=== PATIENT | female | born 1965 | race Caucasian/White ===

== ENCOUNTER 2017-01-14 11:18 | Inpatient (IN) | payer MEDICAID ==
[~2017-01-14] VITALS: Ht 160 cm; Wt 73.0 kg
[2017-01-14] MEDS ORDERED: NITROGLYCERIN OINT 1GM/INCH UDPKT TD STA (11:46)
[2017-01-14 12:49] LABS: BASOPHILS % 0.5 % (0.0-2.0); EOSINOPHILS % 0.4 % (0.0-5.0); HEMATOCRIT. 44.3 % (36.0-48.0); HEMOGLOBIN. 15.8 g/dL (12.0-16.0); LYMPHOCYTES % 18.8 % (20.0-50.0); MEAN CORPUSCULAR HEMOGLOBIN 30.9 pg (28.0-32.0); MEAN CORPUSCULAR VOLUME 86.8 fL (81.0-99.0); MEAN PLATELET VOLUME 8.3 fl (7.4-10.4); MONOCYTES % 3.5 % (2.0-8.0); NEUTROPHILS % 76.8 % (40.0-76.0); PLATELET 181 x1000/uL (130-400); RED BLOOD CELL COUNT 5.11 mill/uL (4.2-5.4); RED CELL DISTRIBUTION WIDTH 13.2 % (11.6-14.6)
[2017-01-14 12:59] LABS: INR 1.1; PARTIAL THROMBOPLASTIN TIME 27.8 sec (23.4-31.0); PROTHROMBIN TIME 11.4 sec (9.4-11.6)
[2017-01-14 13:00] LABS: CARBON DIOXIDE 29 mEq/L (21-32); CHLORIDE 107 mEq/L (98-107)
[2017-01-14] MEDS ORDERED: ASPIRIN 325MG TABLET PO ONE (13:00)
[2017-01-14 13:07] LABS: TROPONIN I < 0.02 ng/mL (0.00-0.04)
[2017-01-14 15:28] VITALS: BP 141/87
[2017-01-14] MEDS ORDERED: BENA20TA3 PO (15:34)
[2017-01-14 16:00] VITALS: BP 141/87
[2017-01-14] MEDS ORDERED: IPRATROPIUM/ALBUTEROL 0.5-3(2.5)MG/3ML NEB INH PRN (16:45)
[2017-01-14] MEDS ORDERED: HYDROCODONE/ACETAMINOPHEN 5/325MG TABLET PO PRN (16:45)
[2017-01-14] MEDS ORDERED: ACETAMINOPHEN 325MG TABLET PO PRN (16:45)
[2017-01-14] MEDS ORDERED: DIPHENHYDRAMINE 50MG/ML VIAL IV PRN (16:45)
[2017-01-14] MEDS ORDERED: CLONIDINE 0.1MG TABLET PO PRN (16:45)
[2017-01-14] MEDS ORDERED: ONDANSETRON HCL 4MG/2ML VIAL IV PRN (16:45)
[2017-01-14 20:00] VITALS: BP 155/91
[2017-01-15] VITALS: BP 133/77
[2017-01-15 04:00] VITALS: BP 150/87
[2017-01-15 06:38] LABS: CLARITY URINE CLEAR (CLEAR); COLOR URINE YELLOW (YELLOW); GLUCOSE URINE NEGATIVE (NEGATIVE); KETONES URINE NEGATIVE (NEGATIVE); LEUKOCYTE ESTERASE URINE NEGATIVE (NEGATIVE); NITRITE URINE NEGATIVE (NEGATIVE); OCCULT BLOOD URINE NEGATIVE (NEGATIVE); PH URINE 5.5 (4.5-8.0); PROTEIN URINE NEGATIVE (NEGATIVE); SPECIFIC GRAVITY URINE 1.013 (1.005-1.030); UROBILINOGEN URINE 0.2 E.U./dL (0.2-1.0)
[2017-01-15 06:56] LABS: *AMPHETAMINES SCREEN URINE NEGATIVE (NEGATIVE); *BARBITURATES SCREEN URINE NEGATIVE (NEGATIVE); *BENZODIAZEPINES SCREEN URINE NEGATIVE (NEGATIVE); *COCAINE SCREEN URINE NEGATIVE (NEGATIVE); CANNABINOID URINE SCREEN NEGATIVE (NEGATIVE); METHADONE URINE SCREEN NEGATIVE (NEGATIVE); OPIATES URINE SCREEN NEGATIVE (NEGATIVE); PHENCYCLIDINE URINE SCREEN NEGATIVE (NEGATIVE)
[2017-01-15 10:20] LABS: BASOPHILS % 0.6 % (0.0-2.0); EOSINOPHILS % 0.8 % (0.0-5.0); HEMATOCRIT. 45.6 % (36.0-48.0); HEMOGLOBIN. 15.9 g/dL (12.0-16.0); LYMPHOCYTES % 19.8 % (20.0-50.0); MEAN CORPUSCULAR HEMOGLOBIN 30.4 pg (28.0-32.0); MEAN PLATELET VOLUME 8.9 fl (7.4-10.4); MONOCYTES % 3.6 % (2.0-8.0); NEUTROPHILS % 75.2 % (40.0-76.0); PLATELET 197 x1000/uL (130-400); RED BLOOD CELL COUNT 5.24 mill/uL (4.2-5.4); RED CELL DISTRIBUTION WIDTH 13.3 % (11.6-14.6)
[2017-01-15 10:54] LABS: CARBON DIOXIDE 27 mEq/L (21-32); CHLORIDE 106 mEq/L (98-107); HDL CHOLESTEROL 46 mg/dL (40-59); LDL CHOLESTEROL 134 mg/dL (5-100); TROPONIN I < 0.02 ng/mL (0.00-0.04)
[2017-01-15] MEDS ORDERED: LISINOPRIL 10MG TABLET PO SCH (13:00)
[2017-01-15] MEDS ORDERED: HYDROCHLOROTHIAZIDE 12.5MG CAPSULE PO SCH (13:45)
[2017-01-15] MEDS ORDERED: LISINOPRIL 20MG TABLET PO SCH (14:00)
[2017-01-15] MEDS ORDERED: LISI-604 PO (14:01)
[2017-01-15] MEDS ORDERED: LIP40 PO (14:01)
[2017-01-15] MEDS ORDERED: HYDR12.529 PO (14:03)
[2017-01-15 17:01] VITALS: BP 140/75
[2017-01-15] MEDS ORDERED: ATORVASTATIN CALCIUM 40MG TABLET PO SCH (21:00)
== END 2017-01-15 18:25 | disposition home or self-care (01) | DRG 199 ==
LOC: ER 13:22 → 5WST 13:31 → EDBEDREQTM 13:32 → EDBEDREQ 13:32 → ENRESERV 14:18
PROVIDERS: ADMIT Internal Medicine; ATTEND Internal Medicine
DX: I11.9 Hypertensive heart disease without heart failure (principal); E78.5 Hyperlipidemia, unspecified; Z79.899 Other long term (current) drug therapy; Z90.710 Acquired absence of both cervix and uterus
CPT/HCPCS: 36415; 70450; 71010; 80053; 80061; 80305; 81003; 83690; 84443; 84484; 85025; 85610; 85730; 93005; 93306; 99285

== ENCOUNTER 2019-08-03 12:45 | Emergency (ER) | payer MEDICAID ==
[~2019-08-03] VITALS: Ht 162.6 cm; Wt 75.0 kg
[~2019-08-03 12:45] MED LIST: HYDR12.529 PO; LIP40 PO; LISI-604 PO
[2019-08-03] MEDS ORDERED: ACETAMINOPHEN 500MG TABLET PO ONE (13:15)
[2019-08-03] MEDS ORDERED: HYDROCHLOROTHIAZIDE 25MG TABLET PO ONE (13:15)
[2019-08-03 15:33] VITALS: BP 149/78
== END 2019-08-03 15:34 | disposition home or self-care (01) ==
LOC: ER 12:45
DX: I10 Essential (primary) hypertension (principal); G51.0 Bell's palsy; M54.2 Cervicalgia
CPT/HCPCS: 93005; 99283